=== PATIENT | female | born 1965 | race African-American/Black ===

== ENCOUNTER 2017-06-27 18:21 | Emergency (ER) | payer SELFPAY ==
[2017-06-27 18:26] VITALS: BP 107/79; PULSE 105; TEMP 98.3; BMI 29.0
[2017-06-27] MEDS ORDERED: ALBUTEROL SO4 2.5/IPRATROPIUM 0.5 INH SOL 3 ML VIAL.NEB. NEB ONE ×3 (18:26→19:47)
--- NOTE | 2017-06-27 18:26 | PDOC ---
Rapid Medical Evaluation Time Seen by Provider: 06/27/17 18:22 Medical Evaluation: Allergies Allergy/AdvReac Type Severity Reaction Status Date / Time No Known Drug Allergies Allergy Verified 10/19/13 01:19 fruit Allergy Severe Difficulty Uncoded 10/19/13 01:19 Breathing nuts Allergy Severe Difficulty Uncoded 10/19/13 01:19 Breathing 06/27/17 18:22 I have performed a brief in-person evaluation of this patient. The patient presents with a chief complaint of: cough w/ pleuritic CP, sob and body aches x 2 days. Boyfriend w/ the flu. H/o asthma, smoker, s/p hysterectomy Pertinent physical exam findings:Midly tachy w/ clear chest/lungs I have ordered the following:duoneb/flu swab/cxr The patient will proceed to the ED for further evaluation. 06/27/17 18:28 06/27/17 18:28
--- NOTE | 2017-06-27 19:22 | PDOC ---
History of Present Illness - General Chief Complaint: Cold Symptoms Stated Complaint: CHEST PAIN,cough Time Seen by Provider: 06/27/17 18:22 History Source: Patient Exam Limitations: No Limitations - History of Present Illness Initial Comments: 06/27/17 19:26 Patient came for evaluation of fevers, moist but nonproductive cough, body aches and chills for 2 days. Spouse is ill and has been tested positive for influenza B. Asthma, has been using albuterol nebulizers at home. Just completed a very short course of low-dose steroids for hip inflammation but was not better with any of the any the medications. Timing/Duration: reports: changing over time, getting worse Severity: reports: moderate Modifying Factors: improves with: albuterol inhaler, albuterol nebulizer, coughing Associated Symptoms: reports: chest pain/soreness, cough, fever/chills, nasal congestion, nasal drainage, shortness of breath, wheezing Past History - Travel Traveled outside of the country in the last 30 days: No Close contact w/someone who was outside of country & ill: No - Past Medical History Allergies/Adverse Reactions: Allergies Allergy/AdvReac Type Severity Reaction Status Date / Time No Known Drug Allergies Allergy Verified 06/27/17 18:26 fruit Allergy Severe Difficulty Uncoded 06/27/17 18:26 Breathing nuts Allergy Severe Difficulty Uncoded 06/27/17 18:26 Breathing Home Medications: Ambulatory Orders Cefpodoxime Proxetil 100 mg PO BID #13 tablet 10/19/13 Prednisone [Deltasone -] 40 mg PO DAILY PRN 10/19/13 Albuterol 0.083% Nebulizer Christa [Ventolin 0.083% Nebulizer Soln -] 1 neb NEB Q4H PRN #30 vial 06/27/17 Oseltamivir Phosphate [Tamiflu -] 75 mg PO BID #10 capsule 06/27/17 Prednisone [Deltasone -] 20 mg PO BID #8 tablet 06/27/17 Asthma: Yes COPD: No - Reproductive History Cervical CA: No Dysfunctional Uterine Bleeding: No Ectopic : No Endometrial CA: No Polycystic Ovaries: No Therapeutic (s) & number: No Tubal Ligation: No - Immunization History Immunization Up to Date: Yes - Suicide/Smoking/Psychosocial Hx Smoking Status: Yes Smoking History: Never smoked Number of Cigarettes Smoked Daily: 10 Information on smoking cessation initiated: No 'Breaking Loose' booklet given: 06/27/17 Hx Alcohol Use: No Drug/Substance Use Hx: No Substance Use Type: None Review of Systems - Review of Systems Able to Perform ROS?: Yes Is the patient limited Scottish proficient: Yes Constitutional: Yes: Symptoms Reported, See HPI, Chills, Fever, Loss of Appetite , Malaise HEENTM: Yes: Symptoms Reported, See HPI, Nose Congestion Respiratory: Yes: Symptoms reported, See HPI, Cough, Shortness of Breath, Wheezing Cardiac (ROS): No: Symptoms Reported ABD/GI: Yes: See HPI. No: Symptoms Reported : No: Symptoms Reported Musculoskeletal: Yes: Symptoms Reported, See HPI Neurological: Yes: Symptoms reported, See HPI, Headache All Other Systems: Reviewed and Negative *Physical Exam - Vital Signs Last Vital Signs Temp Pulse Resp BP Pulse Ox 98.3 F 105 H 19 107/79 95 06/27/17 18:23 06/27/17 18:23 06/27/17 18:23 06/27/17 18:23 06/27/17 18:23 - Physical Exam General Appearance: Yes: Nourished, Appropriately Dressed, Moderate Distress HEENT: positive: TMs Normal, Pharynx Normal (mild erythema with copious amounts posterior sinus drainage noted, white. No exudate), Tonsillar Erythema, Rhinorrhea. negative: Normal ENT Inspection, Tonsillar Exudate Neck: positive: Supple. negative: Tender, Lymphadenopathy (R), Lymphadenopathy (L) Respiratory/Chest: positive: Normal Breath Sounds, Decreased Breath Sounds. negative: Lungs Clear Cardiovascular: positive: Regular Rhythm Gastrointestinal/Abdominal: positive: Normal Bowel Sounds, Tender, Flat Musculoskeletal: positive: Normal Inspection Extremity: positive: Normal Capillary Refill, Normal Inspection, Normal Range of Motion. negative: Tender Integumentary: positive: Dry, Warm, Pale Neurologic: positive: mental health counselor II-XII NML intact, Fully Oriented, Alert, Normal Mood/ Affect, Normal Response, Motor Strength 5/5 ED Treatment Course - Medications Given in the ED: ED Medications Discontinued Medications Generic Name Dose Route Start Last Admin Trade Name Freq PRN Reason Stop Dose Admin Albuterol/Ipratropium 1 amp 06/27/17 18:26 06/27/17 18:37 Duoneb - NEB 06/27/17 18:27 1 amp ONCE ONE Administration Progress Note - Progress Note Progress Note: Upper respiratory infection, partner has positive influenza B however patient's influenza testing here is negative. Patient has clinical evidence of influenza therefore will treat with Tamiflu continue albuterol and another short course of prednisone. *DC/Admit/Observation/Transfer Diagnosis at time of Disposition: Influenzal acute upper respiratory infection - Discharge Dispostion Disposition: HOME Condition at time of disposition: Stable Admit: No - Prescriptions Prescriptions: Albuterol 0.083% Nebulizer Christa [Ventolin 0.083% Nebulizer Soln -] 1 neb NEB Q4H PRN #30 vial PRN Reason: Cough Oseltamivir Phosphate [Tamiflu -] 75 mg PO BID #10 capsule Prednisone [Deltasone -] 20 mg PO BID #8 tablet - Referrals Referrals: Anaya Day MD [Primary Care Provider] - - Patient Instructions Additional Instructions: Rest, drink lots of fluids: Teas, water, soups, Pedialyte Saltwater gargles Steamy showers/seem to face break up mucus Old-fashioned treatments help! Avoid contact with others until fevers and cough resolved as this is very contagious Lots of handwashing and good hygiene Continue [id number] medications for symptomatic relief Tylenol or Motrin for fever and pain Take all of Tamiflu as directed: 1 tab every 12 hours for 5 days Followup with private physician in one to 2 days as needed or if worsening Return to emergency department for worsened symptoms, fevers, dehydration Influenza takes between 5 and 7 days for resolution To not participate in any activity, work, or school until fevers and cough are gone for at least one day - Post Discharge Activity Forms/Work/School Notes: Back to Work
[2017-06-27] MEDS ORDERED: DEXAMETHASONE SOD PHOSPHATE 10 MG/1 ML VIAL IM ONE (19:27)
[2017-06-27] MEDS ORDERED: DEXAMETHASONE SOD PHOSPHATE 10 MG/1 ML VIAL ONE (19:31)
--- NOTE | 2017-06-28 12:44 | EKG ---
Test Reason : Blood Pressure : / mmHG Vent. Rate : 102 BPM Atrial Rate : 102 BPM P-R Int : 146 ms QRS Dur : 070 ms QT Int : 348 ms P-R-T Axes : 075 -02 057 degrees QTc Int : 453 ms SINUS TACHYCARDIA BIATRIAL ENLARGEMENT ABNORMAL ECG WHEN COMPARED WITH ECG OF 19-OCT-2013 01:31, NO SIGNIFICANT CHANGE WAS FOUND Confirmed by NARENDRA SUÁREZ MD ([id number]) on 06/28/2017 12:43:32 PM Referred By: Confirmed By:NARENDRA SUÁREZ MD
== END 2017-06-27 22:09 | disposition home or self-care (01) ==
LOC: JERFT 18:21
PROC: 3E0F7GC Introduction of Other Therapeutic Substance into Respiratory Tract, Via Natural or Artificial Opening (ICD-10-PCS; principal; 2017-06-27)
DX: J11.1 Influenza due to unidentified influenza virus with other respiratory manifestations (principal); F17.210 Nicotine dependence, cigarettes, uncomplicated; J45.909 Unspecified asthma, uncomplicated
CPT/HCPCS: 71046-TC; 87804; 93005; 93010; 99281-25; J1100

== ENCOUNTER 2020-04-27 15:27 | Emergency (ER) | payer OTHER ==
[2020-04-27 15:43] VITALS: BP 115/81; PULSE 93; TEMP 98.6; BMI 27.9
[2020-04-27] MEDS ORDERED: LIDOCAINE 5% TOPICAL PATCH TP ONE (17:31)
[2020-04-27] MEDS ORDERED: ACETAMINOPHEN 1000 MG/100 ML VIAL (NON FORMULARY) IVPB ONE (17:31)
[2020-04-27] MEDS ORDERED: ACETAMINOPHEN INJECTION 100 ML IVPB ONE (18:31)
[2020-04-27] MEDS ORDERED: LIDOCAINE 5% TOPICAL PATCH ONE (18:32)
[2020-04-27 19:22] LABS: BASO % 0.5 % (0-2.0); EOS % 5.2 % (0-4.5); HEMATOCRIT 38.9 % (32.4-45.2); HEMOGLOBIN 13.2 GM/dL (10.7-15.3); MCH 30.9 pg (25.7-33.7); MEAN CELL VOLUME 90.9 fl (80-96); MEAN PLT VOLUME 9.8 fl (7.5-11.1); MONO % 12.5 % (3.8-10.2); NEUT % 50.8 % (42.8-82.8); PLATELET COUNT 220 K/MM3 (134-434); RBC 4.28 M/mm3 (3.60-5.2); RDW 14.3 % (11.6-15.6); WHITE BLOOD COUNT 8.1 K/mm3 (4.0-10.0)
[2020-04-27 19:37] LABS: POTASSIUM 4.1 mmol/L (3.5-5.1)
[2020-04-27] MEDS ORDERED: KETOROLAC TROMETHAMINE 15 MG/ML VIAL IVPUSH ONE (19:38)
[2020-04-27 19:39] LABS: CALCIUM 8.8 mg/dL (8.5-10.1)
[2020-04-27 19:40] LABS: ALBUMIN 3.5 g/dl (3.4-5.0); BLOOD UREA NITROGEN 16.9 mg/dL (7-18)
[2020-04-27 19:45] LABS: BILIRUBIN,TOTAL 0.2 mg/dL (0.2-1); TOT PROT 7.4 g/dl (6.4-8.2)
[2020-04-28] MEDS ORDERED: LIDOCAINE PATCH REMOVAL MC ONE (06:00)
== END 2020-04-27 22:03 | disposition home or self-care (01) ==
LOC: JER 15:27
PROC: 3E0333Z Introduction of Anti-inflammatory into Peripheral Vein, Percutaneous Approach (ICD-10-PCS; principal; 2020-04-27)
PROC: 3E0333Z Introduction of Anti-inflammatory into Peripheral Vein, Percutaneous Approach (ICD-10-PCS; 2020-04-27)
DX: M79.601 Pain in right arm (principal); M79.602 Pain in left arm
CPT/HCPCS: 36415; 72125-TC; 72128-TC; 80053; 85025; 99285-25; J0131

== ENCOUNTER 2020-09-16 09:20 | Inpatient (IN) | payer BC ==
[2020-09-16] MEDS ORDERED: ALBUTEROL SO4 2.5/IPRATROPIUM 0.5 INH SOL 3 ML VIAL.NEB. NEB ONE ×4 (09:54→12:58)
[2020-09-16] MEDS ORDERED: DEXAMETHASONE 4 MG TABLET (FP) PO ONE (09:59)
[2020-09-16] MEDS ORDERED: DEXAMETHASONE SOD PHOSPHATE 4 MG/1 ML VIAL IVPUSH ONE (10:13)
[2020-09-16] MEDS ORDERED: DEXAMETHASONE SOD PHOSPHATE 10 MG/1 ML VIAL ONE (10:16)
[2020-09-16 11:07] LABS: VENOUS BASE EXCESS 0.9 mmol/L (-2-2); VENOUS O2 SATURATION 88.6 % (70-80); VENOUS PCO2 42.7 mmHg (38-52); VENOUS PH 7.401 (7.310-7.410)
[2020-09-16 11:10] LABS: BASO % 0.2 % (0-2.0); EOS % 0.1 % (0-4.5); HEMATOCRIT 39.8 % (32.4-45.2); HEMOGLOBIN 13.6 GM/dL (10.7-15.3); LYMPH % 9.8 % (8-40); MCH 30.4 pg (25.7-33.7); MCHC 34.1 g/dl (32.0-36.0); MEAN CELL VOLUME 89.2 fl (80-96); MEAN PLT VOLUME 9.4 fl (7.5-11.1); MONO % 6.5 % (3.8-10.2); NEUT % 83.4 % (42.8-82.8); PLATELET COUNT 264 K/MM3 (134-434); RBC 4.46 M/mm3 (3.60-5.2); WHITE BLOOD COUNT 9.4 K/mm3 (4.0-10.0)
[2020-09-16 11:25] LABS: CHLORIDE 101 mmol/L (98-107); SODIUM 136 mmol/L (136-145)
[2020-09-16 11:30] LABS: ALBUMIN 3.7 g/dl (3.4-5.0); ANION GAP 6 MMOL/L (8-16); CALCIUM 9.6 mg/dL (8.5-10.1); CO2 29 mmol/L (21-32)
[2020-09-16 11:31] LABS: BLOOD UREA NITROGEN 15.6 mg/dL (7-18); GLUCOSE,RANDOM 133 mg/dL (74-106)
[2020-09-16 11:33] LABS: SGPT/ALT 22 U/L (13-61)
[2020-09-16 11:34] LABS: CREATININE 0.8 mg/dL (0.55-1.3); SGOT/AST 23 U/L (15-37)
[2020-09-16 11:35] LABS: BILIRUBIN,TOTAL 0.3 mg/dL (0.2-1); TOT PROT 7.9 g/dl (6.4-8.2)
[2020-09-16 11:36] LABS: ALK PHOS 115 U/L (45-117)
[2020-09-16] MEDS ORDERED: ACETAMINOPHEN INJECTION 100 ML IVPB ONE (12:12)
[2020-09-16] MEDS: ALBUTEROL SO4 2.5/IPRATROPIUM 0.5 INH SOL 3 ML VIAL.NEB. NEB SCH ×4 (12:15→12:59)
[2020-09-16] MEDS ORDERED: ACETAMINOPHEN 1000 MG/100 ML VIAL (NON FORMULARY) IVPB ONE (12:20)
[2020-09-16] MEDS: oxyCODONE HCL 5 MG TABLET PO PRN (18:41)
[2020-09-16] MEDS ORDERED: diphenhydrAMINE HCL 25 MG CAPSULE (FP) PO ONE (19:29)
[2020-09-16 19:34] VITALS: BMI 27.0
[2020-09-16] MEDS: GABAPENTIN 400 MG CAPSULE PO SCH (21:10)
[2020-09-17] MEDS: oxyCODONE HCL 5 MG TABLET PO PRN ×3 (00:13→17:53)
[2020-09-17] MEDS: MELATONIN 5 MG TABLETS PO PRN ×2 (00:43→22:11)
[2020-09-17] MEDS: GABAPENTIN 400 MG CAPSULE PO SCH ×3 (06:12→22:10)
[2020-09-17] MEDS: ALBUTEROL SO4 2.5/IPRATROPIUM 0.5 INH SOL 3 ML VIAL.NEB. NEB SCH ×4 (08:09→20:25)
[2020-09-17] MEDS: methylPREDNISolone NA SUCC 40 MG/1 ML VIAL IVPUSH SCH ×3 (09:15→22:10)
[2020-09-17] MEDS: HEPARIN NA (PORCINE) 5,000 UNITS/ML 1ML VIAL SQ SCH ×2 (09:22→17:53)
[2020-09-17 09:24] LABS: BASO % 0.3 % (0-2.0); EOS % 0.8 % (0-4.5); HEMATOCRIT 36.6 % (32.4-45.2); HEMOGLOBIN 12.2 GM/dL (10.7-15.3); LYMPH % 23.9 % (8-40); MCH 30.1 pg (25.7-33.7); MCHC 33.3 g/dl (32.0-36.0); MEAN CELL VOLUME 90.4 fl (80-96); MEAN PLT VOLUME 9.3 fl (7.5-11.1); MONO % 13.3 % (3.8-10.2); NEUT % 61.7 % (42.8-82.8); PLATELET COUNT 221 K/MM3 (134-434); RBC 4.04 M/mm3 (3.60-5.2); RDW 15.4 % (11.6-15.6); WHITE BLOOD COUNT 11.7 K/mm3 (4.0-10.0)
[2020-09-17 09:41] LABS: CHLORIDE 105 mmol/L (98-107); SODIUM 138 mmol/L (136-145)
[2020-09-17 09:44] LABS: ALBUMIN 3.2 g/dl (3.4-5.0); ANION GAP 6 MMOL/L (8-16); BLOOD UREA NITROGEN 26.7 mg/dL (7-18); CALCIUM 8.4 mg/dL (8.5-10.1); CO2 28 mmol/L (21-32); GLUCOSE,RANDOM 123 mg/dL (74-106)
[2020-09-17 09:47] LABS: CREATININE 0.8 mg/dL (0.55-1.3); SGOT/AST 20 U/L (15-37); SGPT/ALT 20 U/L (13-61)
[2020-09-17 09:48] LABS: BILIRUBIN,TOTAL 0.2 mg/dL (0.2-1); TOT PROT 6.6 g/dl (6.4-8.2)
[2020-09-17 09:49] LABS: ALK PHOS 109 U/L (45-117)
[2020-09-17 10:04] LABS: LDH 164 U/L (84-246)
[2020-09-18] MEDS: oxyCODONE HCL 5 MG TABLET PO PRN ×3 (02:09→21:08)
[2020-09-18] MEDS: HEPARIN NA (PORCINE) 5,000 UNITS/ML 1ML VIAL SQ SCH ×3 (02:09→18:31)
[2020-09-18] MEDS: methylPREDNISolone NA SUCC 40 MG/1 ML VIAL IVPUSH SCH ×3 (02:10→18:31)
[2020-09-18] MEDS: ALBUTEROL SO4 0.083% IH SOL 2.5 MG/3 ML VIAL.NEB. NEB PRN (04:30)
[2020-09-18] MEDS: GABAPENTIN 400 MG CAPSULE PO SCH ×3 (06:03→22:59)
[2020-09-18] MEDS: ALBUTEROL SO4 2.5/IPRATROPIUM 0.5 INH SOL 3 ML VIAL.NEB. NEB SCH ×4 (07:41→19:20)
[2020-09-18] MEDS ORDERED: BISACODYL 5 MG TABLET.DR (FP) PO ONE (08:55)
[2020-09-18 09:25] LABS: CHLORIDE 104 mmol/L (98-107); SODIUM 136 mmol/L (136-145)
[2020-09-18 09:27] LABS: BLOOD UREA NITROGEN 17.3 mg/dL (7-18); CALCIUM 8.7 mg/dL (8.5-10.1)
[2020-09-18 09:28] LABS: ALBUMIN 3.4 g/dl (3.4-5.0); ANION GAP 5 MMOL/L (8-16); CO2 27 mmol/L (21-32); GLUCOSE,RANDOM 281 mg/dL (74-106)
[2020-09-18 09:31] LABS: CREATININE 0.9 mg/dL (0.55-1.3); SGOT/AST 14 U/L (15-37); SGPT/ALT 21 U/L (13-61)
[2020-09-18 09:33] LABS: BILIRUBIN,TOTAL < 0.1 mg/dL (0.2-1)
[2020-09-18 09:34] LABS: ALK PHOS 124 U/L (45-117)
[2020-09-18] MEDS: POLYETHYLENE GLYCOL 3350 119 GM BTL PO SCH (10:25)
[2020-09-18] MEDS: MELATONIN 5 MG TABLETS PO PRN (21:08)
[2020-09-18] MEDS: guaiFENesin 200 MG/10 ML 10 ML UNIT-DOSE CUPS PO PRN (21:08)
[2020-09-19] MEDS: ALBUTEROL SO4 0.083% IH SOL 2.5 MG/3 ML VIAL.NEB. NEB PRN (01:12)
[2020-09-19] MEDS: methylPREDNISolone NA SUCC 40 MG/1 ML VIAL IVPUSH SCH ×3 (02:35→17:14)
[2020-09-19] MEDS: HEPARIN NA (PORCINE) 5,000 UNITS/ML 1ML VIAL SQ SCH ×3 (02:36→17:14)
[2020-09-19] MEDS: guaiFENesin 200 MG/10 ML 10 ML UNIT-DOSE CUPS PO PRN ×3 (02:36→21:23)
[2020-09-19] MEDS: GABAPENTIN 400 MG CAPSULE PO SCH ×3 (06:26→21:23)
[2020-09-19] MEDS: ALBUTEROL SO4 2.5/IPRATROPIUM 0.5 INH SOL 3 ML VIAL.NEB. NEB SCH ×4 (08:02→20:53)
[2020-09-19] MEDS ORDERED: ERGOCALCIFEROL (VIT D2) 50,000 UNIT (1.25 MG) CAPSULE PO ONE (09:12)
[2020-09-19] MEDS ORDERED: FOLIC ACID INJECTION - 1 MG, THIAMINE HCL 100 MG, MULTIVIT INJECTION ADULT 10 ML in SOD... IVPB ONE (09:12)
[2020-09-19] MEDS: oxyCODONE HCL 5 MG TABLET PO PRN ×2 (10:27→21:21)
[2020-09-19] MEDS: POLYETHYLENE GLYCOL 3350 119 GM BTL PO SCH (10:28)
[2020-09-19] MEDS: THIAMINE HCL 100 MG TABLET (FP) PO SCH (10:28)
[2020-09-19] MEDS: THIAMINE HCL 200 MG/2 ML VIAL IM SCH (10:29)
[2020-09-19] MEDS: CHOLECALCIFEROL (VIT D3) 5000 UNITS (125 MCG) CAP PO SCH (11:21)
[2020-09-19] MEDS: MELATONIN 5 MG TABLETS PO PRN (21:23)
[2020-09-20] MEDS: methylPREDNISolone NA SUCC 40 MG/1 ML VIAL IVPUSH SCH ×2 (01:56→09:51)
[2020-09-20] MEDS: HEPARIN NA (PORCINE) 5,000 UNITS/ML 1ML VIAL SQ SCH ×3 (01:56→17:36)
[2020-09-20] MEDS: GABAPENTIN 400 MG CAPSULE PO SCH ×3 (06:01→21:55)
[2020-09-20] MEDS: ALBUTEROL SO4 2.5/IPRATROPIUM 0.5 INH SOL 3 ML VIAL.NEB. NEB SCH ×4 (07:40→20:34)
[2020-09-20] MEDS ORDERED: PT OWN MED DRAWER 7, Y5N ONE (09:46)
[2020-09-20] MEDS: oxyCODONE HCL 5 MG TABLET PO PRN ×2 (09:50→16:01)
[2020-09-20] MEDS: guaiFENesin 200 MG/10 ML 10 ML UNIT-DOSE CUPS PO PRN (09:50)
[2020-09-20] MEDS: CHOLECALCIFEROL (VIT D3) 5000 UNITS (125 MCG) CAP PO SCH (09:51)
[2020-09-20] MEDS: DULoxetine HCL 30 MG CAPSULE.DR PO SCH (09:51)
[2020-09-20] MEDS: POLYETHYLENE GLYCOL 3350 119 GM BTL PO SCH (09:51)
[2020-09-20] MEDS: THIAMINE HCL 200 MG/2 ML VIAL IM SCH (09:51)
[2020-09-20] MEDS: THIAMINE HCL 100 MG TABLET (FP) PO SCH (09:51)
[2020-09-20] MEDS ORDERED: MAGNESIUM HYDROX 2400MG/30ML ORAL SUSPENSION 30 ML CUP PO PRN (09:53)
[2020-09-20] MEDS: MELATONIN 5 MG TABLETS PO PRN (21:55)
[2020-09-20] MEDS ORDERED: methylPREDNISolone NA SUCC 40 MG/1 ML VIAL IVPUSH SCH (22:00)
[2020-09-21] MEDS: HEPARIN NA (PORCINE) 5,000 UNITS/ML 1ML VIAL SQ SCH ×2 (02:00→09:58)
[2020-09-21] MEDS: GABAPENTIN 400 MG CAPSULE PO SCH ×2 (05:54→13:00)
[2020-09-21] MEDS: guaiFENesin 200 MG/10 ML 10 ML UNIT-DOSE CUPS PO PRN (05:54)
[2020-09-21] MEDS: oxyCODONE HCL 5 MG TABLET PO PRN (05:58)
[2020-09-21] MEDS: ALBUTEROL SO4 2.5/IPRATROPIUM 0.5 INH SOL 3 ML VIAL.NEB. NEB SCH ×2 (07:40→11:42)
[2020-09-21] MEDS ORDERED: CALAMINE 8% TOPICAL LOTION 177 ML BOTTLE TP PRN (08:47)
[2020-09-21 09:05] LABS: HEMOGLOBIN 12.8 GM/dL (10.7-15.3); MCH 30.5 pg (25.7-33.7); MCHC 33.6 g/dl (32.0-36.0); MEAN PLT VOLUME 9.8 fl (7.5-11.1); PLATELET COUNT 250 K/MM3 (134-434); RBC 4.18 M/mm3 (3.60-5.2); RDW 15.4 % (11.6-15.6); WHITE BLOOD COUNT 19.9 K/mm3 (4.0-10.0)
[2020-09-21] MEDS ORDERED: PT OWN MED DRAWER 7, Y5N ONE (09:51)
[2020-09-21 09:54] LABS: BLOOD UREA NITROGEN 24.2 mg/dL (7-18)
[2020-09-21] MEDS: THIAMINE HCL 100 MG TABLET (FP) PO SCH (09:54)
[2020-09-21] MEDS: DULoxetine HCL 30 MG CAPSULE.DR PO SCH (09:54)
[2020-09-21] MEDS: CHOLECALCIFEROL (VIT D3) 5000 UNITS (125 MCG) CAP PO SCH (09:54)
[2020-09-21 09:55] LABS: CALCIUM 8.8 mg/dL (8.5-10.1); MAGNESIUM 2.6 mg/dL (1.8-2.4)
[2020-09-21] MEDS: THIAMINE HCL 200 MG/2 ML VIAL IM SCH (09:55)
[2020-09-21] MEDS: POLYETHYLENE GLYCOL 3350 119 GM BTL PO SCH (09:56)
[2020-09-21 09:58] LABS: CREATININE 0.8 mg/dL (0.55-1.3)
[2020-09-21] MEDS ORDERED: predniSONE 20 MG TABLET (UD) PO SCH (10:00)
[2020-09-21 14:35] VITALS: BP 144/70; PULSE 91; TEMP 98.5
== END 2020-09-21 15:36 | disposition home or self-care (01) | DRG 203 ==
LOC: JER 09:20 → JERBED 12:32 → J6S 14:49
PROVIDERS: ADMIT Family Medicine; ATTEND Family Medicine
DX: J45.901 Unspecified asthma with (acute) exacerbation (principal); G62.9 Polyneuropathy, unspecified; J44.9 Chronic obstructive pulmonary disease, unspecified; F17.210 Nicotine dependence, cigarettes, uncomplicated; I25.10 Atherosclerotic heart disease of native coronary artery without angina pectoris; G56.00 Carpal tunnel syndrome, unspecified upper limb; R07.81 Pleurodynia
CPT/HCPCS: 36415; 71046-TC-FY; 71275-TC; 80048; 80053; 82085; 82550; 82553; 82607; 82728; 82746; 82803; 83036; 83090; 83615; 83735; 84100; 84207; 84252; 84443; 84484; 85025; 85027; 86038; 86140; 86780; 93005; 93010; 93306-TC; 94640; 94761; 97116-GP; 97163-GP; 99285-25; C9803; J0131; J1644; Q9967; U0003; U0005

== ENCOUNTER 2021-09-30 06:06 | Day surgery (SDC) | payer BC, OTHER ==
[2021-09-23 11:02] VITALS: BMI 27.2
[2021-09-30] MEDS ORDERED: BUPIVACAINE HCL 50 ML ONE (07:20)
[2021-09-30] MEDS ORDERED: LIDOCAINE HCL 1%, 10 MG/ML (20ML VIAL) ONE (07:20)
[2021-09-30] MEDS ORDERED: PROPOFOL 20 ML ONE ×2 (07:36→08:26)
[2021-09-30] MEDS ORDERED: MIDAZOLAM HCL 2 MG/2 ML SINGLE DOSE VIAL ONE ×2 (07:36→08:09)
[2021-09-30] MEDS ORDERED: ceFAZolin SODIUM 1 GM VIAL ONE (08:14)
[2021-09-30] MEDS ORDERED: ONDANSETRON 4 MG/2 ML VIAL ONE (08:25)
[2021-09-30] MEDS ORDERED: DEXAMETHASONE SOD PHOSPHATE 4 MG/1 ML VIAL ONE (08:25)
[2021-09-30] MEDS ORDERED: ONDANSETRON 4 MG/2 ML VIAL IVPUSH PRN (08:51)
[2021-09-30] MEDS ORDERED: oxyCODONE HCL 5 MG TABLET PO PRN (08:51)
[2021-09-30] MEDS ORDERED: LACTATED RINGERS SOLUTION 1,000 ML IV SCH (09:00)
[2021-09-30 10:12] VITALS: TEMP 97.6
[2021-09-30 11:05] VITALS: BP 125/70; PULSE 66
== END 2021-09-30 10:50 | disposition home or self-care (01) ==
LOC: FASU 06:06
PROVIDERS: ATTEND Orthopaedic Surgery
PROC: 0LB80ZZ Excision of Left Hand Tendon, Open Approach (ICD-10-PCS; 2021-09-30)
PROC: 01N50ZZ Release Median Nerve, Open Approach (ICD-10-PCS; principal; 2021-09-30 08:20)
DX: G56.02 Carpal tunnel syndrome, left upper limb (principal); M65.842 Other synovitis and tenosynovitis, left hand
CPT/HCPCS: 88304-TC; 94760

== ENCOUNTER 2022-01-05 18:06 | Inpatient (IN) | payer OTHER ==
[2022-01-05] MEDS ORDERED: methylPREDNISolone NA SUCC 125 MG/2 ML VIAL IVPB ONE (18:57)
[2022-01-05] MEDS ORDERED: ALBUTEROL SO4 2.5/IPRATROPIUM 0.5 INH SOL 3 ML VIAL.NEB. NEB ONE (19:16)
[2022-01-05] MEDS ORDERED: methylPREDNISolone NA SUCC 125 MG/2 ML VIAL ONE (19:16)
[2022-01-05] MEDS: ALBUTEROL SO4 2.5/IPRATROPIUM 0.5 INH SOL 3 ML VIAL.NEB. NEB SCH ×2 (19:38→20:02)
[2022-01-05] MEDS ORDERED: ACETAMINOPHEN 1000 MG/100 ML BAG IVPB ONE (19:58)
[2022-01-05] MEDS ORDERED: ACETAMINOPHEN INJECTION 100 ML IVPB ONE (20:09)
[2022-01-05 20:12] LABS: BASO % 0.3 % (0-2.0); EOS % 3.9 % (0-4.5); HEMATOCRIT 37.7 % (32.4-45.2); HEMOGLOBIN 12.6 GM/dL (10.7-15.3); LYMPH % 25.7 % (8-40); MCH 29.6 pg (25.7-33.7); MCHC 33.4 g/dl (32.0-36.0); MEAN CELL VOLUME 88.5 fl (80-96); MEAN PLT VOLUME 8.6 fl (7.5-11.1); MONO % 12.8 % (3.8-10.2); NEUT % 57.3 % (42.8-82.8); PLATELET COUNT 253 10^3/uL (134-434); RBC 4.26 M/mm3 (3.60-5.2); RDW 15.3 % (11.6-15.6); WHITE BLOOD COUNT 7.2 K/mm3 (4.0-10.0)
[2022-01-05 20:18] LABS: BLOOD UREA NITROGEN 15.3 mg/dL (7-18); CALCIUM 8.3 mg/dL (8.5-10.1)
[2022-01-05 20:19] LABS: ALBUMIN 3.3 g/dl (3.4-5.0)
[2022-01-05 20:22] LABS: CREATININE 1.1 mg/dL (0.55-1.3)
[2022-01-05 20:23] LABS: BILIRUBIN,TOTAL 0.1 mg/dL (0.2-1)
[2022-01-05] MEDS ORDERED: MECLIZINE HCL 25 MG TABLET (FP) PO ONE (21:14)
[2022-01-05] MEDS ORDERED: AZITHROMYCIN IVPB 500 MG in DEXTROSE 5%-WATER - 250 ML IVPB ONE (21:23)
[2022-01-05] MEDS ORDERED: MECLIZINE HCL 25 MG TABLET (FP) ONE (22:00)
[2022-01-05] MEDS ORDERED: AZITHROMYCIN IVPB 500 MG/250 ML BAG IVPB ONE (22:01)
[2022-01-06] MEDS ORDERED: oxyCODONE HCL 5 MG TABLET PO ONE (03:15)
[2022-01-06 04:50] VITALS: BMI 29.9
[2022-01-06] MEDS ORDERED: PNEUMOC 20-VAL CONJ-DIP CRM/PF 0.5 ML SYRINGE IM ONE ×2 (04:50→10:00)
[2022-01-06] MEDS: ACETAMINOPHEN 325 MG TABLET (FP) PO PRN ×2 (08:07→18:32)
[2022-01-06] MEDS ORDERED: POLYETHYLENE GLYCOL (HEALTHYLAX) 3350 17 GM PACKET PO PRN (09:29)
[2022-01-06] MEDS: ENOXAPARIN NA (PORCINE) 40 MG/0.4 ML DISP.SYRIN SQ SCH (10:14)
[2022-01-06 10:19] LABS: BASO % 0.3 % (0-2.0); HEMATOCRIT 38.4 % (32.4-45.2); HEMOGLOBIN 12.9 GM/dL (10.7-15.3); LYMPH % 11.3 % (8-40); MCH 29.6 pg (25.7-33.7); MCHC 33.6 g/dl (32.0-36.0); MEAN CELL VOLUME 88.1 fl (80-96); MEAN PLT VOLUME 8.9 fl (7.5-11.1); MONO % 6.8 % (3.8-10.2); NEUT % 81.6 % (42.8-82.8); PLATELET COUNT 269 10^3/uL (134-434); RBC 4.36 M/mm3 (3.60-5.2); RDW 14.9 % (11.6-15.6); WHITE BLOOD COUNT 9.2 K/mm3 (4.0-10.0)
[2022-01-06] MEDS: methylPREDNISolone NA SUCC 40 MG/1 ML VIAL IVPUSH SCH ×2 (10:26→18:20)
[2022-01-06] MEDS: BUDESONIDE/FORMETEROL FUMARATE 160/4.5 mcg INHALER IH SCH ×2 (10:26→21:30)
[2022-01-06 10:49] LABS: CREATININE 0.8 mg/dL (0.55-1.3)
[2022-01-06 10:51] LABS: TOT PROT 7.7 g/dl (6.4-8.2)
[2022-01-06 10:54] LABS: ALBUMIN 3.5 g/dl (3.4-5.0); BILIRUBIN,TOTAL 0.2 mg/dL (0.2-1); BLOOD UREA NITROGEN 15.6 mg/dL (7-18); CALCIUM 9.3 mg/dL (8.5-10.1)
[2022-01-06] MEDS: ALBUTEROL SO4 2.5/IPRATROPIUM 0.5 INH SOL 3 ML VIAL.NEB. NEB SCH ×3 (11:12→20:01)
[2022-01-06] MEDS: INSULIN SLIDING SCALE (NOVOLOG) 1 VIAL SQ SCH ×3 (11:58→21:33)
[2022-01-06 12:09] LABS: EPI CELLS 23 /uL (0-25.1); HYALINE CASTS 2 /uL (0-3.1); PH,URINE 5.5 (5.0-8.0); URINE APPEARANCE CLEAR; URINE BACTERIA 448 /uL (0-1359); URINE BILIRUBIN NEGATIVE (NEGATIVE); URINE COLOR YELLOW; URINE GLUCOSE (UA) NEGATIVE (NEGATIVE); URINE KETONE NEGATIVE (NEGATIVE); URINE LEUK ESTERASE NEGATIVE (NEGATIVE); URINE NITRITE NEGATIVE (NEGATIVE); URINE PROTEIN TRACE (NEGATIVE); URINE UROBILINOGEN 0.2 mg/dL (0.2-1.0); URINE WBC 12 /uL (0-25.8)
[2022-01-06 12:17] LABS: METHADONE, UR NEGATIVE (NEGATIVE); PHENCYCLIDINE,URINE NEGATIVE (NEGATIVE); URINE BARBITURATES NEGATIVE (NEGATIVE); URINE BENZODIAZEPINES NEGATIVE (NEGATIVE)
[2022-01-06 12:18] LABS: URINE AMPHETAMINES NEGATIVE (NEGATIVE)
[2022-01-06 12:20] LABS: COCAINE, UR POSITIVE (NEGATIVE); OPIATES, URI POSITIVE (NEGATIVE)
[2022-01-06 12:33] LABS: URINE RBC 35 /uL (0-23.9)
[2022-01-06] MEDS: MECLIZINE HCL 12.5 MG TABLET PO SCH ×2 (15:01→21:29)
[2022-01-06] MEDS: ROSUVASTATIN CA 10 MG TABLET PO SCH (21:29)
[2022-01-07] MEDS: ACETAMINOPHEN 325 MG TABLET (FP) PO PRN (01:13)
[2022-01-07] MEDS: methylPREDNISolone NA SUCC 40 MG/1 ML VIAL IVPUSH SCH (01:14)
[2022-01-07 01:47] VITALS: RESP 18
[2022-01-07] MEDS: MECLIZINE HCL 12.5 MG TABLET PO SCH ×3 (06:05→21:43)
[2022-01-07] MEDS: INSULIN SLIDING SCALE (NOVOLOG) 1 VIAL SQ SCH ×4 (06:05→21:47)
[2022-01-07] MEDS: ALBUTEROL SO4 2.5/IPRATROPIUM 0.5 INH SOL 3 ML VIAL.NEB. NEB SCH ×4 (07:45→21:09)
[2022-01-07] MEDS ORDERED: traMADol HCL 50 MG TABLET PO PRN (09:40)
[2022-01-07] MEDS: predniSONE 20 MG TABLET (UD) PO SCH ×2 (10:01→21:43)
[2022-01-07] MEDS: ENOXAPARIN NA (PORCINE) 40 MG/0.4 ML DISP.SYRIN SQ SCH (10:01)
[2022-01-07] MEDS: BUDESONIDE/FORMETEROL FUMARATE 160/4.5 mcg INHALER IH SCH ×2 (10:02→21:43)
[2022-01-07] MEDS: ROSUVASTATIN CA 10 MG TABLET PO SCH (21:43)
[2022-01-08] MEDS: MECLIZINE HCL 12.5 MG TABLET PO SCH (06:09)
[2022-01-08] MEDS: INSULIN SLIDING SCALE (NOVOLOG) 1 VIAL SQ SCH ×2 (06:12→11:00)
[2022-01-08] MEDS: ALBUTEROL SO4 2.5/IPRATROPIUM 0.5 INH SOL 3 ML VIAL.NEB. NEB SCH ×2 (08:05→11:40)
[2022-01-08] MEDS: predniSONE 20 MG TABLET (UD) PO SCH (09:08)
[2022-01-08] MEDS: ENOXAPARIN NA (PORCINE) 40 MG/0.4 ML DISP.SYRIN SQ SCH (09:08)
[2022-01-08] MEDS: BUDESONIDE/FORMETEROL FUMARATE 160/4.5 mcg INHALER IH SCH (09:09)
[2022-01-08 13:13] VITALS: BP 110/60; PULSE 80; TEMP 98
== END 2022-01-08 13:39 | disposition home or self-care (01) | DRG 192 ==
LOC: JER 18:06 → JERBED 22:13 → OBSVTOIN 22:13 → J6S 01-06 04:08
PROVIDERS: ADMIT Internal Medicine; ATTEND Family Medicine
DX: J44.1 Chronic obstructive pulmonary disease with (acute) exacerbation (principal); J44.9 Chronic obstructive pulmonary disease, unspecified; I10 Essential (primary) hypertension; E78.5 Hyperlipidemia, unspecified; K21.9 Gastro-esophageal reflux disease without esophagitis; G62.9 Polyneuropathy, unspecified; F17.210 Nicotine dependence, cigarettes, uncomplicated; E11.9 Type 2 diabetes mellitus without complications; H81.09 Meniere's disease, unspecified ear
CPT/HCPCS: 0241U-QW; 36415; 70450-TC; 71046-TC-FY; 80053; 80307; 81003; 82962; 84484; 85025; 87040; 87086; 87899; 93005; 93010; 94640; 94761; 97116-GP; 97162-GP; 99285-25

== ENCOUNTER 2023-06-08 18:11 | Emergency (ER) | payer OTHER ==
[2023-06-08 18:28] VITALS: TEMP 98.7; BMI 26.6
[2023-06-08] MEDS ORDERED: ACETAMINOPHEN 1000 MG/100 ML BAG IVPB ONE (19:53)
[2023-06-08] MEDS ORDERED: methylPREDNISolone NA SUCC 125 MG/2 ML VIAL IVPUSH ONE (19:54)
[2023-06-08] MEDS ORDERED: methylPREDNISolone NA SUCC 125 MG/2 ML VIAL ONE (20:19)
[2023-06-08] MEDS ORDERED: ALBUTEROL SO4 2.5/IPRATROPIUM 0.5 INH SOL 3 ML VIAL.NEB. NEB ONE (20:19)
[2023-06-08] MEDS ORDERED: ACETAMINOPHEN INJECTION 100 ML IVPB ONE (20:19)
[2023-06-08] MEDS: ALBUTEROL SO4 2.5/IPRATROPIUM 0.5 INH SOL 3 ML VIAL.NEB. NEB SCH ×2 (20:43→21:21)
[2023-06-08 20:46] LABS: HEMATOCRIT 35.8 % (32.4-45.2); HEMOGLOBIN 12.1 GM/dL (10.7-15.3); MCH 29.5 pg (25.7-33.7); MCHC 33.7 g/dl (32.0-36.0); MEAN CELL VOLUME 87.7 fl (80-96); MEAN PLT VOLUME 8.2 fl (7.5-11.1); PLATELET COUNT 150 10^3/uL (134-434); RBC 4.08 M/mm3 (3.60-5.2); RDW 15.8 % (11.6-15.6); WHITE BLOOD COUNT 4.6 K/mm3 (4.0-10.0)
[2023-06-08 21:04] LABS: POTASSIUM 3.8 mmol/L (3.5-5.1)
[2023-06-08 21:07] LABS: INR 1.16 (0.83-1.09); PROTHROMBIN TIME (PATIENT) 13.4 SEC (9.7-13.0)
[2023-06-08 21:08] LABS: BLOOD UREA NITROGEN 19.2 mg/dL (7-18)
[2023-06-08 21:09] LABS: ACTIVATED PTT 32.4 SECONDS (25.2-36.5)
[2023-06-08 21:11] LABS: CREATININE 0.8 mg/dL (0.55-1.3)
[2023-06-08 21:13] LABS: BILIRUBIN,TOTAL 0.2 mg/dL (0.2-1); TOT PROT 6.8 g/dl (6.4-8.2)
[2023-06-08 21:20] VITALS: BP 104/59; PULSE 93; RESP 20
[2023-06-08] MEDS ORDERED: AZITHROMYCIN 250 MG TABLET PO ONE (21:59)
[2023-06-08] MEDS ORDERED: AZITHROMYCIN 500 MG TABLET ONE (22:00)
[2023-06-08 22:05] LABS: ANISOCYTOSIS 1+; MACROCYTOSIS 1+
== END 2023-06-08 22:06 | disposition home or self-care (01) ==
LOC: JER 18:11
PROC: 3E033NZ Introduction of Analgesics, Hypnotics, Sedatives into Peripheral Vein, Percutaneous Approach (ICD-10-PCS; principal; 2023-06-08)
PROC: 3E033GC Introduction of Other Therapeutic Substance into Peripheral Vein, Percutaneous Approach (ICD-10-PCS; 2023-06-08)
PROC: 3E0F7GC Introduction of Other Therapeutic Substance into Respiratory Tract, Via Natural or Artificial Opening (ICD-10-PCS; 2023-06-08)
DX: J11.1 Influenza due to unidentified influenza virus with other respiratory manifestations (principal); R05.9 Cough, unspecified; R07.9 Chest pain, unspecified; R53.83 Other fatigue; M79.10 Myalgia, unspecified site; R50.9 Fever, unspecified; R00.0 Tachycardia, unspecified; Z20.822 Contact with and (suspected) exposure to COVID-19
CPT/HCPCS: 0241U-QW; 36415; 71045-TC-FY; 80053; 84484; 85025; 85610; 85730; 93005; 93010; 94640; 96374; 96375; 99285-25

== ENCOUNTER 2023-09-14 04:26 | Day surgery (SDC) | payer OTHER ==
[2023-09-14 08:06] VITALS: TEMP 97.8; BMI 27.8
[2023-09-14] MEDS ORDERED: MIDAZOLAM HCL 2 MG/2 ML SINGLE DOSE VIAL ONE (08:49)
[2023-09-14 10:00] VITALS: BP 111/58; PULSE 72; RESP 16
== END 2023-09-14 10:08 | disposition home or self-care (01) ==
LOC: JASU-ENDO 04:26
PROVIDERS: ATTEND Internal Medicine Gastroenterology
PROC: 0DBK8ZX Excision of Ascending Colon, Via Natural or Artificial Opening Endoscopic, Diagnostic (ICD-10-PCS; principal; 2023-09-14 09:30)
DX: Z12.11 Encounter for screening for malignant neoplasm of colon (principal); D12.2 Benign neoplasm of ascending colon; K64.8 Other hemorrhoids; K57.30 Diverticulosis of large intestine without perforation or abscess without bleeding; K59.89 Other specified functional intestinal disorders
CPT/HCPCS: 88305-TC

== ENCOUNTER 2023-09-19 04:11 | Day surgery (SDC) | payer OTHER ==
[2023-09-13 13:14] VITALS: BMI 29.5
[2023-09-19] MEDS ORDERED: LIDOCAINE VISCOUS 2% ORAL/TOP 15 ML UNIT-DOSE CUP ONE (09:43)
[2023-09-19 10:24] VITALS: TEMP 98
[2023-09-19 10:45] VITALS: RESP 16
[2023-09-19 10:52] VITALS: BP 137/86; PULSE 73
== END 2023-09-19 11:10 | disposition home or self-care (01) ==
LOC: JASU-ENDO 04:11
PROVIDERS: ATTEND Internal Medicine Gastroenterology
PROC: 0DB78ZX Excision of Stomach, Pylorus, Via Natural or Artificial Opening Endoscopic, Diagnostic (ICD-10-PCS; 2023-09-19)
PROC: 0DB68ZX Excision of Stomach, Via Natural or Artificial Opening Endoscopic, Diagnostic (ICD-10-PCS; 2023-09-19)
PROC: 0DB98ZX Excision of Duodenum, Via Natural or Artificial Opening Endoscopic, Diagnostic (ICD-10-PCS; principal; 2023-09-19 10:00)
DX: K29.50 Unspecified chronic gastritis without bleeding (principal)
CPT/HCPCS: 88305-TC; 88342-TC

== ENCOUNTER 2023-11-03 22:19 | Inpatient (IN) | payer OTHER ==
[2023-11-03] MEDS ORDERED: ONDANSETRON 4 MG/2 ML VIAL ONE (23:10)
[2023-11-03] MEDS ORDERED: FAMOTIDINE 20 MG/50 ML IVPB 20 MG/50 ML MG IVPB ONE (23:10)
[2023-11-03] MEDS ORDERED: MAG HYDROX/AL HYDROX/SIMETH 30 ML UNIT-DOSE CUP ONE (23:10)
[2023-11-03] MEDS ORDERED: ACETAMINOPHEN INJECTION 100 ML IVPB ONE (23:10)
[2023-11-03 23:19] LABS: BASO % 0.4 % (0-2.0); EOS % 0.1 % (0-4.5); HEMATOCRIT 39.3 % (32.4-45.2); HEMOGLOBIN 13.4 GM/dL (10.7-15.3); LYMPH % 8.6 % (8-40); MCH 29.6 pg (25.7-33.7); MCHC 34.1 g/dl (32.0-36.0); MEAN CELL VOLUME 86.9 fl (80-96); MEAN PLT VOLUME 8.2 fl (7.5-11.1); MONO % 13.5 % (3.8-10.2); NEUT % 77.4 % (42.8-82.8); PLATELET COUNT 202 10^3/uL (134-434); RBC 4.52 M/mm3 (3.60-5.2); RDW 15.2 % (11.6-15.6); WHITE BLOOD COUNT 10.1 K/mm3 (4.0-10.0)
[2023-11-03] MEDS: ACETAMINOPHEN 1000 MG/100 ML BAG IVPB ONE (23:22)
[2023-11-03] MEDS: MAG HYDROX/AL HYDROX/SIMETH 30 ML UNIT-DOSE CUP PO ONE (23:22)
[2023-11-03] MEDS: SODIUM CHLORIDE 1,000 ML IV STA (23:23)
[2023-11-03] MEDS: FAMOTIDINE 20 MG/50 ML IVPB 20 MG/50 ML MG IVPB ONE (23:23)
[2023-11-03] MEDS: ONDANSETRON 4 MG/2 ML VIAL IVPUSH ONE (23:23)
[2023-11-03 23:43] LABS: POTASSIUM 3.7 mmol/L (3.5-5.1)
[2023-11-03 23:44] LABS: CALCIUM 8.2 mg/dL (8.5-10.1)
[2023-11-03 23:45] LABS: ALBUMIN 3.5 g/dl (3.4-5.0); MAGNESIUM 1.9 mg/dL (1.8-2.4)
[2023-11-03 23:48] LABS: CREATININE 0.9 mg/dL (0.55-1.3)
[2023-11-03 23:49] LABS: BILIRUBIN,TOTAL 0.2 mg/dL (0.2-1)
[2023-11-03 23:50] LABS: TOT PROT 7.7 g/dl (6.4-8.2)
[2023-11-04] MEDS: REMDESIVIR 200 MG in SODIUM CHLORIDE 250 ML IVPB ONE (00:08)
[2023-11-04] MEDS ORDERED: KETOROLAC TROMETHAMINE 15 MG/ML VIAL ONE (01:22)
[2023-11-04] MEDS: KETOROLAC TROMETHAMINE 15 MG/ML VIAL IVPUSH ONE (01:30)
[2023-11-04] MEDS ORDERED: ALBUTEROL SO4 HFA INHALER IH PRN (06:05)
[2023-11-04] MEDS: PANTOPRAZOLE SODIUM 40 MG VIAL IVPUSH SCH (09:57)
[2023-11-04] MEDS ORDERED: MECLIZINE HCL 12.5 MG TABLET PO PRN (10:33)
[2023-11-04 11:03] VITALS: BMI 32.5
[2023-11-04] MEDS: ACETAMINOPHEN 1000 MG/100 ML BAG IVPB PRN (11:46)
[2023-11-04 12:17] LABS: BASO % 0.3 % (0-2.0); EOS % 0.2 % (0-4.5); HEMATOCRIT 36.2 % (32.4-45.2); HEMOGLOBIN 12.2 GM/dL (10.7-15.3); LYMPH % 11.5 % (8-40); MCH 29.2 pg (25.7-33.7); MCHC 33.8 g/dl (32.0-36.0); MEAN CELL VOLUME 86.5 fl (80-96); MEAN PLT VOLUME 8.4 fl (7.5-11.1); MONO % 14.1 % (3.8-10.2); NEUT % 73.9 % (42.8-82.8); PLATELET COUNT 180 10^3/uL (134-434); RBC 4.19 M/mm3 (3.60-5.2); RDW 15.2 % (11.6-15.6); WHITE BLOOD COUNT 10.1 K/mm3 (4.0-10.0)
[2023-11-04 12:43] LABS: POTASSIUM 3.6 mmol/L (3.5-5.1)
[2023-11-04 12:44] LABS: ALBUMIN 2.9 g/dl (3.4-5.0); BLOOD UREA NITROGEN 11.6 mg/dL (7-18); CALCIUM 7.7 mg/dL (8.5-10.1)
[2023-11-04 12:47] LABS: CREATININE 0.8 mg/dL (0.55-1.3)
[2023-11-04 12:49] LABS: BILIRUBIN,TOTAL 0.2 mg/dL (0.2-1); TOT PROT 6.9 g/dl (6.4-8.2)
[2023-11-04] MEDS: methylPREDNISolone NA SUCC 40 MG/1 ML VIAL IVPUSH SCH (13:26)
[2023-11-04] MEDS: REMDESIVIR 100 MG in SODIUM CHLORIDE 250 ML IVPB SCH (15:39)
[2023-11-04] MEDS: ALBUTEROL SO4 0.083% IH SOL 2.5 MG/3 ML VIAL.NEB. NEB SCH (16:00)
[2023-11-04] MEDS: CEFTRIAXONE 2 GM in DEXTROSE 5%-WATER 100 ML IVPB SCH (20:45)
[2023-11-04] MEDS: GABAPENTIN 400 MG CAPSULE PO SCH (21:27)
[2023-11-04] MEDS: FLUTICASONE PROP 0.05% 16 GM NASAL SPRAY NS SCH (21:55)
[2023-11-05] MEDS: ACETAMINOPHEN 1000 MG/100 ML BAG IVPB ONE (04:19)
[2023-11-05] MEDS: FLUTICASONE/UMECLIDIN/VILANTER(200-62.5-25 TRELEGY ELLIPTA) INAHLER IH SCH (09:30)
[2023-11-05 09:46] LABS: BASO % 0.3 % (0-2.0); EOS % 0.1 % (0-4.5); HEMATOCRIT 33.6 % (32.4-45.2); HEMOGLOBIN 11.7 GM/dL (10.7-15.3); LYMPH % 13.3 % (8-40); MCH 29.9 pg (25.7-33.7); MCHC 34.7 g/dl (32.0-36.0); MEAN CELL VOLUME 86.2 fl (80-96); MEAN PLT VOLUME 8.2 fl (7.5-11.1); MONO % 12.5 % (3.8-10.2); NEUT % 73.8 % (42.8-82.8); PLATELET COUNT 187 10^3/uL (134-434); RDW 15.2 % (11.6-15.6); WHITE BLOOD COUNT 12.3 K/mm3 (4.0-10.0)
[2023-11-05 10:07] LABS: CALCIUM 8.1 mg/dL (8.5-10.1)
[2023-11-05 10:08] LABS: BLOOD UREA NITROGEN 11.9 mg/dL (7-18); POTASSIUM 3.8 mmol/L (3.5-5.1)
[2023-11-05 10:11] LABS: CREATININE 0.7 mg/dL (0.55-1.3)
[2023-11-05] MEDS: ROFLUMILAST 500 MCG TABLET PO SCH (10:52)
[2023-11-05] MEDS: oxyCODONE HCL 5 MG TABLET PO PRN (12:35)
[2023-11-06 13:29] LABS: BASO % 0.2 % (0-2.0); EOS % 0.1 % (0-4.5); HEMATOCRIT 36.4 % (32.4-45.2); HEMOGLOBIN 12.3 GM/dL (10.7-15.3); LYMPH % 13.3 % (8-40); MCH 29.4 pg (25.7-33.7); MCHC 33.8 g/dl (32.0-36.0); MEAN CELL VOLUME 87.1 fl (80-96); MEAN PLT VOLUME 8.8 fl (7.5-11.1); MONO % 10.9 % (3.8-10.2); NEUT % 75.5 % (42.8-82.8); PLATELET COUNT 177 10^3/uL (134-434); RBC 4.19 M/mm3 (3.60-5.2); RDW 15.4 % (11.6-15.6); WHITE BLOOD COUNT 12.9 K/mm3 (4.0-10.0)
[2023-11-06 13:54] LABS: POTASSIUM 3.5 mmol/L (3.5-5.1)
[2023-11-06 13:56] LABS: CALCIUM 8.4 mg/dL (8.5-10.1)
[2023-11-06 13:57] LABS: BLOOD UREA NITROGEN 13.7 mg/dL (7-18)
[2023-11-06 14:05] LABS: CREATININE 0.8 mg/dL (0.55-1.3)
[2023-11-06] MEDS: methylPREDNISolone NA SUCC 40 MG/1 ML VIAL IVPUSH SCH (17:59)
[2023-11-07] MEDS: MAG HYDROX/AL HYDROX/SIMETH 30 ML UNIT-DOSE CUP PO ONE (18:16)
[2023-11-07] MEDS: ONDANSETRON 4 MG/2 ML VIAL IVPUSH PRN (23:32)
[2023-11-08] MEDS: MAG HYDROX/AL HYDROX/SIMETH 30 ML UNIT-DOSE CUP PO ONE (05:40)
[2023-11-08] MEDS: MAG HYDROX/AL HYDROX/SIMETH 30 ML UNIT-DOSE CUP PO PRN (10:41)
[2023-11-08 11:14] LABS: HEMATOCRIT 35.1 % (32.4-45.2); HEMOGLOBIN 11.6 GM/dL (10.7-15.3); MCH 28.8 pg (25.7-33.7); MCHC 32.9 g/dl (32.0-36.0); MEAN CELL VOLUME 87.5 fl (80-96); MEAN PLT VOLUME 8.1 fl (7.5-11.1); PLATELET COUNT 231 10^3/uL (134-434); RBC 4.02 M/mm3 (3.60-5.2); RDW 15.1 % (11.6-15.6); WHITE BLOOD COUNT 17.7 K/mm3 (4.0-10.0)
[2023-11-08 11:32] LABS: CALCIUM 8.6 mg/dL (8.5-10.1)
[2023-11-08 11:33] LABS: BLOOD UREA NITROGEN 18.3 mg/dL (7-18)
[2023-11-08 11:36] LABS: ANISOCYTOSIS 0; CREATININE 0.9 mg/dL (0.55-1.3); MACROCYTOSIS 0
[2023-11-08] MEDS: methylPREDNISolone NA SUCC 40 MG/1 ML VIAL IVPUSH SCH (13:01)
[2023-11-08] MEDS: ACETAMINOPHEN 1000 MG/100 ML BAG IVPB ONE (19:40)
[2023-11-09] MEDS: MELATONIN 5 MG TABLETS PO ONE
[2023-11-09] MEDS: traMADol HCL 50 MG TABLET PO ONE
[2023-11-09 06:56] LABS: INR 1.31 (0.83-1.09); PROTHROMBIN TIME (PATIENT) 14.7 SEC (9.7-13.0)
[2023-11-09 07:03] LABS: HEMATOCRIT 35.9 % (32.4-45.2); HEMOGLOBIN 11.8 GM/dL (10.7-15.3); MCH 28.8 pg (25.7-33.7); MEAN CELL VOLUME 87.5 fl (80-96); MEAN PLT VOLUME 8.1 fl (7.5-11.1); PLATELET COUNT 245 10^3/uL (134-434); RBC 4.11 M/mm3 (3.60-5.2); RDW 15.8 % (11.6-15.6); WHITE BLOOD COUNT 16.2 K/mm3 (4.0-10.0)
[2023-11-09 07:21] LABS: POTASSIUM 4.8 mmol/L (3.5-5.1)
[2023-11-09 07:30] LABS: ALBUMIN 3.2 g/dl (3.4-5.0); BLOOD UREA NITROGEN 14.9 mg/dL (7-18)
[2023-11-09 07:33] LABS: CREATININE 0.8 mg/dL (0.55-1.3)
[2023-11-09 07:35] LABS: BILIRUBIN,TOTAL 0.2 mg/dL (0.2-1); TOT PROT 6.9 g/dl (6.4-8.2)
[2023-11-09 09:51] LABS: ANISOCYTOSIS 0; MACROCYTOSIS 0
[2023-11-09] MEDS: ACETAMINOPHEN 500 MG TABLET (FP) PO PRN (15:01)
[2023-11-10 06:47] LABS: HEMATOCRIT 36.7 % (32.4-45.2); HEMOGLOBIN 11.9 GM/dL (10.7-15.3); MCH 28.5 pg (25.7-33.7); MCHC 32.4 g/dl (32.0-36.0); MEAN CELL VOLUME 87.9 fl (80-96); PLATELET COUNT 251 10^3/uL (134-434); RBC 4.17 M/mm3 (3.60-5.2); RDW 15.4 % (11.6-15.6); WHITE BLOOD COUNT 14.5 K/mm3 (4.0-10.0)
[2023-11-10 07:02] LABS: POTASSIUM 3.6 mmol/L (3.5-5.1)
[2023-11-10 07:05] LABS: CALCIUM 8.3 mg/dL (8.5-10.1)
[2023-11-10 07:06] LABS: BLOOD UREA NITROGEN 11.5 mg/dL (7-18)
[2023-11-10 07:09] LABS: CREATININE 0.8 mg/dL (0.55-1.3)
[2023-11-10 09:26] LABS: ANISOCYTOSIS 0; MACROCYTOSIS 0
[2023-11-10] MEDS: methylPREDNISolone NA SUCC 40 MG/1 ML VIAL IVPUSH SCH (10:26)
[2023-11-10] MEDS: oxyCODONE HCL 5 MG TABLET PO PRN (21:38)
[2023-11-10 22:16] VITALS: RESP 18
[2023-11-11 14:26] VITALS: BP 126/76; PULSE 85; TEMP 98.6
== END 2023-11-11 15:08 | disposition home or self-care (01) | DRG 177 ==
LOC: JER 22:19 → JERBED 23:02 → J4S 11-04 08:15
PROVIDERS: ADMIT Family Medicine; ATTEND Family Medicine
PROC: XW033E5 Introduction of Remdesivir Anti-infective into Peripheral Vein, Percutaneous Approach, New Technology Group 5 (ICD-10-PCS; 2023-11-03)
PROC: 0DBN8ZX Excision of Sigmoid Colon, Via Natural or Artificial Opening Endoscopic, Diagnostic (ICD-10-PCS; principal; 2023-11-09 10:00)
DX: U07.1 COVID-19 (principal); J96.01 Acute respiratory failure with hypoxia; J44.1 Chronic obstructive pulmonary disease with (acute) exacerbation; K62.5 Hemorrhage of anus and rectum; K55.9 Vascular disorder of intestine, unspecified; I10 Essential (primary) hypertension; E78.5 Hyperlipidemia, unspecified; K21.9 Gastro-esophageal reflux disease without esophagitis; F17.200 Nicotine dependence, unspecified, uncomplicated; G62.9 Polyneuropathy, unspecified; K52.9 Noninfective gastroenteritis and colitis, unspecified; K64.8 Other hemorrhoids; K57.30 Diverticulosis of large intestine without perforation or abscess without bleeding
CPT/HCPCS: 0241U-QW; 36415; 71045-TC-FY; 74174-TC; 74177-TC; 80048; 80053; 82272; 83605; 83690; 83735; 84484; 85025; 85610; 86140; 86850; 86900; 86901; 87040; 88305-TC; 93005; 93010; 94640; 99285-25; J0131; J0248; Q9967

== ENCOUNTER 2024-07-21 12:01 | Inpatient (IN) | payer OTHER ==
[2024-07-21] MEDS ORDERED: morphine SULFATE 4 MG/ML VIAL ONE (13:42)
[2024-07-21] MEDS ORDERED: DEXAMETHASONE SOD PHOSPHATE 10 MG/1 ML VIAL ONE (13:42)
[2024-07-21] MEDS ORDERED: diazePAM 2 MG TABLET ONE (13:42)
[2024-07-21 13:55] LABS: BASO % 0.3 % (0-2.0); EOS % 2.5 % (0-4.5); HEMATOCRIT 37.9 % (32.4-45.2); HEMOGLOBIN 12.5 GM/dL (10.7-15.3); LYMPH % 19.1 % (8-40); MCH 28.4 pg (25.7-33.7); MEAN CELL VOLUME 85.9 fl (80-96); MEAN PLT VOLUME 8.1 fl (7.5-11.1); MONO % 12.7 % (3.8-10.2); NEUT % 65.4 % (42.8-82.8); PLATELET COUNT 239 10^3/uL (134-434); RBC 4.41 M/mm3 (3.60-5.2); RDW 17.5 % (11.6-15.6); WHITE BLOOD COUNT 8.2 K/mm3 (4.0-10.0)
[2024-07-21] MEDS: morphine SULFATE 4 MG/ML VIAL IVPUSH ONE (13:58)
[2024-07-21] MEDS: diazePAM 2 MG TABLET PO ONE (13:58)
[2024-07-21] MEDS: SODIUM CHLORIDE 1,000 ML IV SCH (13:58)
[2024-07-21] MEDS: DEXAMETHASONE SOD PHOSPHATE 20 MG/5 ML VIAL IVPB ONE (13:58)
[2024-07-21 14:04] LABS: INR 1.12 (0.83-1.09); PROTHROMBIN TIME (PATIENT) 12.2 SEC (9.7-13.0)
[2024-07-21 14:06] LABS: ACTIVATED PTT 32.5 SECONDS (25.2-36.5)
[2024-07-21 14:28] LABS: POTASSIUM 4.6 mmol/L (3.5-5.1)
[2024-07-21 14:29] LABS: EPI CELLS 32 /uL (0-25.1); HYALINE CASTS 0 /uL (0-3.1); PH,URINE 5.5 (5.0-8.0); URINE APPEARANCE CLEAR; URINE BACTERIA 257 /uL (0-1359); URINE BILIRUBIN NEGATIVE (NEGATIVE); URINE COLOR YELLOW; URINE GLUCOSE (UA) NEGATIVE (NEGATIVE); URINE KETONE NEGATIVE (NEGATIVE); URINE LEUK ESTERASE NEGATIVE (NEGATIVE); URINE NITRITE NEGATIVE (NEGATIVE); URINE PROTEIN NEGATIVE (NEGATIVE); URINE RBC 42 /uL (0-23.9)
[2024-07-21 14:31] LABS: ALBUMIN 3.6 g/dl (3.4-5.0); BLOOD UREA NITROGEN 21.1 mg/dL (7-18)
[2024-07-21 14:34] LABS: CREATININE 0.8 mg/dL (0.55-1.3)
[2024-07-21 14:35] LABS: BILIRUBIN,TOTAL 0.2 mg/dL (0.2-1); TOT PROT 7.3 g/dl (6.4-8.2)
[2024-07-21 18:26] VITALS: BMI 30.7
[2024-07-22] MEDS: ACETAMINOPHEN 325 MG TABLET (FP) PO PRN (01:44)
[2024-07-22] MEDS ORDERED: ALBUTEROL SO4 HFA INHALER IH PRN (11:14)
[2024-07-22] MEDS: oxyCODONE HCL 5 MG TABLET PO PRN (12:49)
[2024-07-22] MEDS: FLUTICASONE/UMECLIDIN/VILANTER(100-62.5-25 TRELEGY ELLIPTA) INAHLER IH SCH (14:19)
[2024-07-22] MEDS: ROSUVASTATIN CA 20 MG TABLET PO SCH (22:03)
[2024-07-22] MEDS: GABAPENTIN 400 MG CAPSULE PO SCH (22:04)
[2024-07-23] MEDS: VALSARTAN 80 MG TABLET PO SCH (09:10)
[2024-07-23] MEDS ORDERED: ceFAZolin SODIUM 1 GM VIAL ONE ×2 (09:16→11:00)
[2024-07-23] MEDS ORDERED: THROMBIN (BOVINE) 5,000 UNIT VIAL TP ONE (09:16)
[2024-07-23] MEDS ORDERED: THROMBIN (BOVINE) 20,000 UNIT VIAL TP ONE (09:17)
[2024-07-23] MEDS: EZETIMIBE 10 MG TABLET (FP) PO SCH (09:18)
[2024-07-23] MEDS ORDERED: DEXMEDETOMIDINE HCL 200 MCG/2 ML IVPB ONE (09:29)
[2024-07-23] MEDS ORDERED: PROPOFOL 20 ML ONE ×3 (09:33→12:23)
[2024-07-23] MEDS ORDERED: MIDAZOLAM HCL 2 MG/2 ML SINGLE DOSE VIAL ONE (09:33)
[2024-07-23] MEDS ORDERED: SUCCINYLCHOLINE CHLORIDE 200 MG/10 ML SYRINGE ONE (09:33)
[2024-07-23] MEDS ORDERED: LIDOCAINE HCL/PF 2% SDV 5ML VIAL ONE (09:33)
[2024-07-23] MEDS ORDERED: HYDROmorphone HCl 2 MG/ML VIAL ONE (09:43)
[2024-07-23] MEDS ORDERED: PROPOFOL 60 ML ONE (09:51)
[2024-07-23] MEDS ORDERED: ENOXAPARIN NA (PORCINE) 40 MG/0.4 ML DISP.SYRIN SQ SCH (10:00)
[2024-07-23] MEDS: ceFAZolin SODIUM 1 GM VIAL IVPB ONE ×2 (11:04→11:45)
[2024-07-23] MEDS ORDERED: DEXAMETHASONE SOD PHOSPHATE 4 MG/1 ML VIAL ONE (11:12)
[2024-07-23] MEDS ORDERED: ONDANSETRON 4 MG/2 ML VIAL IVPUSH PRN (13:15)
[2024-07-23] MEDS: LACTATED RINGERS SOLUTION 1,000 ML IV SCH (13:24)
[2024-07-23] MEDS: ACETAMINOPHEN 1000 MG/100 ML BAG IVPB ONE (13:24)
[2024-07-23] MEDS ORDERED: ACETAMINOPHEN 325 MG TABLET (FP) PO PRN (13:31)
[2024-07-23] MEDS: SODIUM CHLORIDE 1,000 ML IV SCH (13:40)
[2024-07-23 16:50] LABS: BASO % 0.1 % (0-2.0); EOS % 0.2 % (0-4.5); HEMATOCRIT 37.8 % (32.4-45.2); HEMOGLOBIN 12.2 GM/dL (10.7-15.3); LYMPH % 7.9 % (8-40); MCH 27.9 pg (25.7-33.7); MCHC 32.4 g/dl (32.0-36.0); MEAN CELL VOLUME 86.2 fl (80-96); MEAN PLT VOLUME 8.6 fl (7.5-11.1); MONO % 4.6 % (3.8-10.2); NEUT % 87.2 % (42.8-82.8); PLATELET COUNT 222 10^3/uL (134-434); RBC 4.39 M/mm3 (3.60-5.2); RDW 17.9 % (11.6-15.6); WHITE BLOOD COUNT 9.3 K/mm3 (4.0-10.0)
[2024-07-23 17:06] LABS: POTASSIUM 4.7 mmol/L (3.5-5.1)
[2024-07-23 17:10] LABS: ALBUMIN 3.4 g/dl (3.4-5.0); BLOOD UREA NITROGEN 17.1 mg/dL (7-18); CALCIUM 8.3 mg/dL (8.5-10.1)
[2024-07-23 17:13] LABS: CREATININE 0.8 mg/dL (0.55-1.3)
[2024-07-23 17:15] LABS: BILIRUBIN,TOTAL 0.2 mg/dL (0.2-1); TOT PROT 7.1 g/dl (6.4-8.2)
[2024-07-23] MEDS: CEFAZOLIN 1 GM/D5W 1 GM/50 ML BAG IVPB SCH (18:01)
[2024-07-23] MEDS: oxyCODONE HCL 5 MG TABLET PO PRN (20:06)
[2024-07-23] MEDS: ROSUVASTATIN CA 20 MG TABLET PO SCH (21:52)
[2024-07-23] MEDS: MONTELUKAST NA 10 MG TABLET PO SCH (21:52)
[2024-07-23] MEDS: GABAPENTIN 400 MG CAPSULE PO SCH (21:52)
[2024-07-23] MEDS: ALBUTEROL SO4 HFA INHALER IH PRN (21:55)
[2024-07-23] MEDS ORDERED: MONTELUKAST NA 10 MG TABLET PO SCH (22:00)
[2024-07-24] MEDS: oxyCODONE HCL 5 MG TABLET PO ONE (02:15)
[2024-07-24] MEDS: ACETAMINOPHEN 1000 MG/100 ML BAG IVPB ONE (02:16)
[2024-07-24 09:00] LABS: HEMATOCRIT 37.1 % (32.4-45.2); HEMOGLOBIN 11.9 GM/dL (10.7-15.3); MCH 27.8 pg (25.7-33.7); MCHC 32.1 g/dl (32.0-36.0); MEAN CELL VOLUME 86.8 fl (80-96); MEAN PLT VOLUME 8.5 fl (7.5-11.1); PLATELET COUNT 238 10^3/uL (134-434); RBC 4.27 M/mm3 (3.60-5.2); RDW 17.2 % (11.6-15.6)
[2024-07-24 09:23] LABS: POTASSIUM 3.9 mmol/L (3.5-5.1)
[2024-07-24 09:31] LABS: ALBUMIN 3.3 g/dl (3.4-5.0); BLOOD UREA NITROGEN 12.5 mg/dL (7-18); CALCIUM 8.6 mg/dL (8.5-10.1)
[2024-07-24] MEDS: EZETIMIBE 10 MG TABLET (FP) PO SCH (09:31)
[2024-07-24] MEDS: POLYETHYLENE GLYCOL (HEALTHYLAX) 3350 17 GM PACKET PO SCH (09:32)
[2024-07-24] MEDS: VALSARTAN 80 MG TABLET PO SCH (09:33)
[2024-07-24 09:35] LABS: CREATININE 0.6 mg/dL (0.55-1.3)
[2024-07-24] MEDS: FLUTICASONE/UMECLIDIN/VILANTER(100-62.5-25 TRELEGY ELLIPTA) INAHLER IH SCH (09:36)
[2024-07-24 09:37] LABS: BILIRUBIN,TOTAL 0.2 mg/dL (0.2-1); TOT PROT 6.9 g/dl (6.4-8.2)
[2024-07-24] MEDS: oxyCODONE HCL 5 MG TABLET PO PRN (14:00)
[2024-07-24] MEDS: HEPARIN NA (PORCINE) 5,000 UNITS/ML 1ML VIAL SQ SCH (14:01)
[2024-07-24] MEDS ORDERED: BENZOCAINE/MENTHOL (CHLORASEPTIC ) LOZENGE MM PRN (20:15)
[2024-07-25 09:22] LABS: HEMATOCRIT 37.2 % (32.4-45.2); HEMOGLOBIN 11.8 GM/dL (10.7-15.3); MCH 27.8 pg (25.7-33.7); MCHC 31.8 g/dl (32.0-36.0); MEAN CELL VOLUME 87.4 fl (80-96); PLATELET COUNT 224 10^3/uL (134-434); RBC 4.26 M/mm3 (3.60-5.2); RDW 17.4 % (11.6-15.6); WHITE BLOOD COUNT 13.6 K/mm3 (4.0-10.0)
[2024-07-25 09:44] LABS: POTASSIUM 4.4 mmol/L (3.5-5.1)
[2024-07-25 09:53] LABS: ALBUMIN 3.3 g/dl (3.4-5.0); BLOOD UREA NITROGEN 16.6 mg/dL (7-18)
[2024-07-25 09:55] LABS: BILIRUBIN,TOTAL 0.2 mg/dL (0.2-1); TOT PROT 7.2 g/dl (6.4-8.2)
[2024-07-25 09:56] LABS: CALCIUM 8.7 mg/dL (8.5-10.1); CREATININE 0.7 mg/dL (0.55-1.3)
[2024-07-25] MEDS: POLYETHYLENE GLYCOL (HEALTHYLAX) 3350 17 GM PACKET PO SCH (13:23)
[2024-07-25] MEDS: BENZOCAINE/MENTH/CETYLPYRD CL 1 EACH LOZENGE MM PRN (15:29)
[2024-07-25] MEDS: BISACODYL 10 MG SUPP.RECT PR PRN (22:49)
[2024-07-26 10:03] VITALS: BP 111/66; PULSE 99; RESP 20; TEMP 98
== END 2024-07-26 11:50 | DRG 472 ==
LOC: JER 12:01 → JERBED 13:44 → J8W 15:14
PROVIDERS: ADMIT Family Medicine; ATTEND Family Medicine
PROC: 0RB30ZZ Excision of Cervical Vertebral Disc, Open Approach (ICD-10-PCS; 2024-07-23)
PROC: 00NW0ZZ Release Cervical Spinal Cord, Open Approach (ICD-10-PCS; 2024-07-23)
PROC: 0RG20A0 Fusion of 2 or more Cervical Vertebral Joints with Interbody Fusion Device, Anterior Approach, Anterior Column, Open Approach (ICD-10-PCS; principal; 2024-07-23 09:00)
DX: M48.02 Spinal stenosis, cervical region (principal); M50.021 Cervical disc disorder at C4-C5 level with myelopathy; M40.202 Unspecified kyphosis, cervical region; I10 Essential (primary) hypertension; E78.5 Hyperlipidemia, unspecified; K21.9 Gastro-esophageal reflux disease without esophagitis; G62.9 Polyneuropathy, unspecified; F32.A Depression, unspecified; J44.9 Chronic obstructive pulmonary disease, unspecified; G47.33 Obstructive sleep apnea (adult) (pediatric); K59.00 Constipation, unspecified
CPT/HCPCS: 36415; 71046-TC-FY; 72040-TC; 76000-TC-FY; 80053; 80061; 81003; 82550; 82553; 83036; 84443; 84484; 85025; 85027; 85610; 85730; 86850; 86900; 86901; 87635; 93005; 93010; 94010; 94660; 94760; 97116-GP; 97161-GP; 99285-25; C1713; C1889; J0131; J1644

== ENCOUNTER 2024-08-27 16:27 | Emergency (ER) | payer OTHER ==
[2024-08-27 16:42] VITALS: BP 119/67; PULSE 105; RESP 18; TEMP 98.1; BMI 32.3
== END 2024-08-27 19:00 | disposition left against medical advice (07) ==
LOC: JER 16:27
DX: Z53.21 Procedure and treatment not carried out due to patient leaving prior to being seen by health care provider (principal)
CPT/HCPCS: 99281-25

== ENCOUNTER 2024-09-03 14:54 | Emergency (ER) | payer OTHER ==
[2024-09-03 15:11] VITALS: BP 140/90; PULSE 100; RESP 18; TEMP 98.9; BMI 32.3
[2024-09-03] MEDS ORDERED: ACETAMINOPHEN INJECTION 100 ML ONE (15:32)
[2024-09-03] MEDS: ACETAMINOPHEN 1000 MG/100 ML BAG IVPB ONE (15:54)
[2024-09-03] MEDS: LACTATED RINGERS SOLUTION 1000 ML INFUS.BAG IV ONE (15:55)
[2024-09-03 16:00] LABS: ABSOLUTE IMMATURE GRANULOCYTES 0.04 x10^3/uL (0.0-0.031); BASOPHILS # 0.02 x10^3/uL (0.01-0.08); EOSINOPHIL % 3.3 % (0.7-5.8); EOSINOPHILS # 0.27 x10^3/uL (0.04-0.36); HEMATOCRIT 36.9 % (34.1-44.9); HEMOGLOBIN 11.6 g/dL (11.2-15.7); MCHC 31.4 g/dl (32.2-35.5); MEAN CELL VOLUME 89.8 fl (79.4-94.8); MONOCYTE # 0.85 x10^3/uL (0.24-0.86); MONOCYTE % 10.4 % (4.7-12.5); PLATELET COUNT 219 x10^3/uL (182-369); RDW 15.6 % (12.3-16.6)
[2024-09-03 16:09] LABS: INR 1.1 (0.83-1.09); PROTHROMBIN TIME (PATIENT) 12.1 SEC (9.7-13.0)
[2024-09-03 16:12] LABS: ACTIVATED PTT 32.8 SECONDS (25.2-36.5)
[2024-09-03 16:21] LABS: ALBUMIN 3.4 g/dl (3.4-5.0); CALCIUM 8.7 mg/dL (8.5-10.1)
[2024-09-03 16:22] LABS: BLOOD UREA NITROGEN 17.1 mg/dL (7-18); MAGNESIUM 1.9 mg/dL (1.8-2.4)
[2024-09-03 16:24] LABS: CREATININE 0.7 mg/dL (0.55-1.3)
[2024-09-03 16:26] LABS: BILIRUBIN,TOTAL 0.2 mg/dL (0.2-1); TOT PROT 7.1 g/dl (6.4-8.2)
[2024-09-03] MEDS ORDERED: morphine SULFATE 4 MG/ML VIAL ONE (16:38)
[2024-09-03] MEDS: morphine CARPU-JECT 4 MG/1 ML DISP.SYRIN IVPUSH ONE (16:53)
[2024-09-03 18:05] LABS: HIV INTERPRETATION NEGATIVE (NEGATIVE)
[2024-09-03 18:07] LABS: HCV DIAGNOSTIC IN-HOUSE W/RFLX NON-REACTIVE (NONREACTIVE)
[2024-09-03] MEDS ORDERED: Methylnaltrexone Bromide 12 MG/0.6 ML KIT SQ ONE (19:01)
[2024-09-03] MEDS: MINERAL OIL ENEMA 133 ML ENEMA RC ONE ×2 (19:39→20:59)
[2024-09-03] MEDS: METHYLNALTREXONE BROMIDE 8 MG/0.4 ML SYRINGE SQ ONE (19:40)
== END 2024-09-03 21:00 | disposition home or self-care (01) ==
LOC: JER 14:54
PROC: 3E033NZ Introduction of Analgesics, Hypnotics, Sedatives into Peripheral Vein, Percutaneous Approach (ICD-10-PCS; principal; 2024-09-03)
PROC: 3E033NZ Introduction of Analgesics, Hypnotics, Sedatives into Peripheral Vein, Percutaneous Approach (ICD-10-PCS; 2024-09-03)
DX: K59.00 Constipation, unspecified (principal); R10.84 Generalized abdominal pain; R19.7 Diarrhea, unspecified
CPT/HCPCS: 36415; 74019-TC-FY; 74174-TC; 80053; 83605; 83690; 83735; 85025; 85610; 85730; 86803; 86850; 86900; 86901; 87389; 93005; 93010; 99285-25; J0131; Q9967